=== PATIENT | female | born 2000 | race Caucasian/White ===

== ENCOUNTER 2021-11-10 21:20 | Emergency (ER) | payer BC, MEDICARE ==
[2021-11-10 21:44] LABS: COVID AG,FIA SOURCE NASAL SWAB
== END 2021-11-10 23:19 | disposition home or self-care (01) ==
LOC: EMS 21:35
DX: Z20.822 Contact with and (suspected) exposure to COVID-19 (principal); Z88.0 Allergy status to penicillin
CPT/HCPCS: 87426; 99283; U0003